=== PATIENT | female | born 1975 | race Caucasian/White ===

== ENCOUNTER 2016-07-21 07:25 | Emergency (ER) | payer OTHER ==
[2016-07-21] MEDS ORDERED: ONDANSETRON 4 MG/2 ML VIAL ONE (07:42)
--- NOTE | 2016-07-21 07:42 | UCPHY ---
H & P Patient Type: Established Chief Complaint Nursing Narrative: c/o Migraine X 3 days last took Imatrex @ 0300 this am and Percocet last night with out relief Time Seen by Provider: 07/21/16 07:41 HPI/ROS: CHIEF COMPLAINT: Headache, relentless HISTORY OF PRESENT ILLNESS: This is a 41-year-old female with a very longstanding history migraines. She noted some 4 years ago that became under markedly good control when she started avoiding all grains. She continues to require the Imitrex once or twice monthly and for the most part works. However that is not the case this time around. She started having a headache upon awakening yesterday morning. Her typical pattern would be that of a mild headache the night before and then awakening quite a bit worse shape the next day. However that certainly was not the case this time. When she did wake up the pain was in the left periorbital area. Over the subsequent 24 hours the pain is involved in spread to include both the right eye as well. It does not affect the vision per se this is essentially left and right periorbital. The pain itself was mildly 1st. This progressively got worse and is moderate to severe at this time. She actually has vomited on 2 occasions. Of note is that she has had poor p.o. intake since this past Thursday some 36 hours ago as she had woken with the headache and the nausea as of yesterday morning. She notes that she feels dry in the mouth. She has had no fevers or earache or sore throat or discharge from nasal sinuses or years. She denies any numbness tingling paresthesias loss of sensation. Whereas she finds typically the Imitrex works for her and has not and she has tried 3 doses in the last 24 hours. Furthermore she has also tried some Percocet which she has available for rescue. P: Not particularly worse with any given physician Q: Pounding R: Periorbital left leading to right S: Moderate to severe T: Progressive the last 24 hours REVIEW OF SYSTEMS: Constitutional: No fever, no chills. Eyes: No diplopia. ENT: No sore throat. Cardiovascular: No chest pain, no palpitations. Respiratory: No cough, shortness of breath, or wheezing. Gastrointestinal: No nausea vomiting or diarrhea. No abdominal pain. Genitourinary: No hematuria or frequency. Musculoskeletal: No back pain. Skin: No rashes. Neurological: See above 10 point ROS otherwise negative Source: Patient Exam Limitations: No limitations - Personal History LMP (Females 10-55): 1-7 Days Ago Current Tetanus Diphtheria and Acellular Pertussis (TDAP): Yes - Medical/Surgical History Hx Asthma: No Hx Chronic Respiratory Disease: No Hx Diabetes: No Hx Cardiac Disease: No Hx Renal Disease: No Other PMH: PTSD/Migraines /Bipolar = [place]/ back issues - Family History Significant Family History: No pertinent family hx - Social History Smoking Status: Never smoked Alcohol Use: None Drug Use: None - Physical Exam Exam: General Appearance: Alert, no distress. Afebrile. Normal phonation. No respiratory distress. While she is photosensitive she does not have photophobia Eyes: Pupils equal and round no pallor or injection. No icterus. Disc is sharp without any papilledema. ENT, Mouth: Mucous membranes dry. Pharynx without erythema or exudate. TM Clear. Neck: No adenopathy. Supple. No JVD. Trachea in midline. Respiratory: There are no retractions, lungs are clear to auscultation. Neurological: Ox3. No motor weakness. Sensation intact. Gait nl. Normal [id number]. No clonus. Skin: Warm and dry, no rashes. Musculoskeletal: No joint swelling. Extremities: No edema. Psychiatric: Normal affect Constitutional: Initial Vital Signs Temperature (C) 36.6 C 07/21/16 07:37 Heart Rate 58 L 07/21/16 07:37 Respiratory Rate 18 07/21/16 07:37 Blood Pressure 165/96 H 07/21/16 07:37 O2 Sat (%) 97 07/21/16 07:37 O2 Delivery Mode Room Air Allergies/Adverse Reactions: No Known Allergies Allergy (Verified 01/09/13 22:04) Home Medications: Medication Instructions Recorded [place] Carbonate [[place] 300 mg PO 03/06/12 Carbonate Cap 300 mg (RX)] Prestiq 03/06/12 SUMAtriptan [Imitrex 25 MG (RX)] 03/06/12 Fluticasone Hfa 220 Mcg [Flovent 1 puffs IH BID #1 mdi 01/31/13 220 MCG Hfa MDI (*)] Acetaminophen [Arthritis Pain 1,300 mg PO TID PRN #60 tablet.er 07/21/16 Relief] Ondansetron Odt [Zofran Odt 4 mg 8 mg PO TID PRN #10 tab 07/21/16 (*)] Oxycodone HCl 10 mg PO Q6H PRN #10 capsule 07/21/16 Percocet 5/325 (*) 07/21/16 predniSONE [Prednisone] 30 mg PO BID #30 tablet 07/21/16 Medical Decision Making ED Course/Re-evaluation: IV is established Given a L saline over an hour Zofran 8 mg IV. Did not get that much better after the Zofran thereby given Benadryl IV as well as Solu-Medrol IV. The plan was to give her Phenergan 25 mg IV however ultimately decided against that wanted to go home convalesce. She has declined a work note. I have explained to her at length the reasons not to take ibuprofen or Aleve for her headaches, though she has not been taking them in the 1st place. This would be on the basis of her being on lithium. Going forward I recommend the following: Zofran Oxycodone p.r.n. - I checked her in the [place] drug database and she Has not received any medications in the last year Prednisone for 5 days, no taper necessary. Tylenol extended-release Differential Diagnosis: Differential Includes but is not limited to: Intraparenchymal hemorrhage, subarachnoid hemorrhage, meningitis, migraine, status migraine, viral syndrome. - Data Points Medications Given: Discontinued Medications Diphenhydramine HCl (Benadryl Injection) 12.5 mg IVP EDNOW ONE Stop: 07/21/16 09:02 Last Admin: 07/21/16 09:11 Dose: 12.5 mg Sodium Chloride (Ns) 1,000 mls @ 0 mls/hr IV ONCE ONE PRN Reason: Wide Open Stop: 07/21/16 08:06 Last Admin: 07/21/16 08:17 Dose: 1,000 mls Methylprednisolone Sodium Succinate (Solu-Medrol) 80 mg IVP EDNOW ONE Stop: 07/21/16 09:03 Last Admin: 07/21/16 09:11 Dose: 80 mg Ondansetron HCl (Zofran) 8 mg IVP ONCE ONE Stop: 07/21/16 08:06 Last Admin: 07/21/16 08:17 Dose: 8 mg Promethazine HCl (Phenergan) 25 mg IVP EDNOW ONE Stop: 07/21/16 09:26 Last Admin: 07/21/16 09:55 Dose: Not Given Departure - Departure Disposition: Home, Routine, Self-Care Clinical Impression: Migraine with status migrainosus Qualifiers: Migraine type: without aura Intractability: not intractable Qualified Code(s): G43.001 - Migraine without aura, not intractable, with status migrainosus Condition: Good Referrals: Brianna Durant LEGAL RECEPTIONIST [Primary Care Provider] - As per Instructions Prescriptions: Acetaminophen [Arthritis Pain Relief] 1,300 mg PO TID PRN #60 tablet.er PRN Reason: Pain, Moderate Ondansetron Odt [Zofran Odt 4 mg (*)] 8 mg PO TID PRN #10 tab PRN Reason: Nausea/Vomiting, Can'T Take Po Oxycodone HCl 10 mg PO Q6H PRN #10 capsule PRN Reason: pain predniSONE [Prednisone] 30 mg PO BID #30 tablet - PQRS PQRS Measurement: Not applicable
[2016-07-21] MEDS ORDERED: ONDANSETRON 4 MG/2 ML VIAL IVP ONE (08:05)
[2016-07-21] MEDS ORDERED: NS 1,000 ML IV ONE (08:05)
[2016-07-21] MEDS ORDERED: methylPREDNISolone SOD SUCC 125 MG/2 ML VIAL ONE (08:55)
[2016-07-21] MEDS ORDERED: methylPREDNISolone SOD SUCC 125 MG/2 ML VIAL IVP ONE (09:02)
[2016-07-21] MEDS ORDERED: PROMETHAZINE HCL 25 MG/ML INJ IVP ONE (09:25)
[2016-07-21 11:03] VITALS: TEMP 95
[2016-07-21 11:06] VITALS: BP 136/84; PULSE 59; RESP 14; O2SAT 94
== END 2016-07-21 11:32 | disposition home or self-care (01) ==
LOC: CED 07:25
DX: G43.001 Migraine without aura, not intractable, with status migrainosus (principal)
CPT/HCPCS: 96361-PO; 96374-PO; 96375-PO; 99215-PO; G0463-PO; J1200; J2405; J2550

== ENCOUNTER → 2018-01-01 | Outpatient (CLI) | payer OTHER | LOC: FIMAGING 14:58 | PROVIDERS: ATTEND Advanced Practice Midwife | DX: R92.8 Other abnormal and inconclusive findings on diagnostic imaging of breast (principal) ==

== ENCOUNTER → 2018-01-22 | Outpatient (CLI) | payer OTHER ==
[~2018-01-22] MED LIST: GADOBUTROL 10 ML VIAL IVP ONE
== END ==
LOC: FIMAGING 07:11
DX: R92.8 Other abnormal and inconclusive findings on diagnostic imaging of breast (principal)
CPT/HCPCS: 0159T; 77059; A9585; C8908